=== PATIENT | female | born 1970 | race Caucasian/White ===

== ENCOUNTER 2016-09-21 07:28 | Emergency (ER) | payer MEDICAID ==
[~2016-09-21] VITALS: Ht 154.9 cm; Wt 96.6 kg
[2016-09-21 07:40] VITALS: BP 139/75
[2016-09-21] MEDS ORDERED: SYN.05 PO (07:45)
--- NOTE | 2016-09-21 07:46 | NUR ---
46/F BIB SELF C/O COUGH & SORE TROAT X 1 DAY. PATIENT DENIES N/V/D; SKIN IS PINK/WARM/DRY; AAOX4 WITH EVEN AND STEADY GAIT; LUNGS CLEAR BL; HR EVEN AND REGULAR; PT DENIES ANY FEVER, CP OR SOB AT THIS TIME; PATIENT STATES PAIN OF 9/10 AT THIS TIME; BP 159/97 AT THIS TIME. PATIENT POSITIONED FOR COMFORT; HOB ELEVATED; BEDRAILS UP X2; BED DOWN. ER MD MADE AWARE OF PT STATUS.
[2016-09-21 08:10] VITALS: BP 136/70
--- NOTE | 2016-09-21 08:10 | NUR ---
Patient discharged with BP 136/70; NO S/S OF HEADACHE OR DIZZINESS; DR DUMONT NOTIFIED , MD AWARE. Written and verbal after care instructions given and explained. Patient alert, oriented and verbalized understanding of instructions. Ambulatory with steady gait. All questions addressed prior to discharge. ID band removed. Patient advised to follow up with PMD. Rx of PREDNISONE & MOTRIN given. Patient educated on indication of medication including possible reaction and side effects. Opportunity to ask questions provided and answered.
== END 2016-09-21 08:10 | disposition home or self-care (01) ==
LOC: MED 07:28
DX: J02.9 Acute pharyngitis, unspecified (principal); E03.9 Hypothyroidism, unspecified
CPT/HCPCS: 99283

== ENCOUNTER 2018-10-30 10:01 | Emergency (ER) | payer MEDICAID ==
[~2018-10-30] VITALS: Ht 152.4 cm; Wt 99.3 kg
[~2018-10-30 10:01] MED LIST: SYN.05 PO
[2018-10-30 10:27] VITALS: BP 124/71
--- NOTE | 2018-10-30 12:17 | NUR ---
PT BIB SELF C/O NUMBNESS AND TINGLING OF LEFT ARM, ON AND OFF FOR 2 WEEKS. PT REPORTS TINGLING PAIN FROM LT HAND UP TO LT SHOULDER BLADE AT 02/03. LMP 10/04/2018. VSS. RAY MYRICK TO SEE PT. HX: HYPOTHYROIDISM, DIABETES
[2018-10-30 13:28] LABS: BASOPHILS # (AUTO) 0.1 K/uL (0.00-0.22); BASOPHILS % (AUTO) 0.9 % (0.0-2.0); EOSINOPHILS # (AUTO) 0.1 K/uL (0-0.4); EOSINOPHILS % (AUTO) 2.1 % (0.0-4.0); HEMATOCRIT 31.7 % (36-48); HEMOGLOBIN 9.7 g/dL (12.0-16.0); LYMPHOCYTES # (AUTO) 1.9 K/uL (2.5-16.5); LYMPHOCYTES % (AUTO) 30.1 % (20.5-51.1); MEAN CORPUSCULAR HEMOGLOBIN 20 pg (27-31); MEAN CORPUSCULAR HGB CONC 31 g/dL (33-37); MEAN CORPUSCULAR VOLUME 63.6 fL (80-94); MONOCYTES # (AUTO) 0.5 K/uL (0.8-1.0); MONOCYTES % (AUTO) 8.1 % (1.7-9.3); NEUTROPHILS # (AUTO) 3.7 K/uL (1.8-7.7); NEUTROPHILS % (AUTO) 58.8 % (42.2-75.2); PLATELET COUNT (AUTO) 278 K/uL (140-450); RED BLOOD CELL COUNT(AUTO) 4.99 MIL/uL (4.20-5.40); RED CELL DISTRIBUTION WIDTH 22.2 % (11.6-13.7); WHITE BLOOD COUNT (AUTO) 6.2 K/uL (4.8-10.8)
[2018-10-30 13:38] LABS: PROTHROMBIN TIME 9.9 secs (10.8-13.4)
[2018-10-30 13:42] LABS: ANION GAP 9.5 (8-16); CARBON DIOXIDE 27.3 mmol/L (21-32); CREATININE 0.5 mg/dL (0.6-1.3); POTASSIUM 3.8 mmol/L (3.5-5.1)
[2018-10-30 13:47] LABS: ALBUMIN 3.3 g/dL (3.4-5.0); TOTAL BILIRUBIN 0.4 mg/dL (0.0-1.0)
--- NOTE | 2018-10-30 14:19 | NUR ---
PT RESTING IN BED, STATES THAT TINGLING HAS LESSEND SINCE COMING IN AND REPORTS SHOULDER PAIN AT 6/10 AT THIS TIME. VSS.
[2018-10-30 16:35] VITALS: BP 135/75
== END 2018-10-30 16:35 | disposition home or self-care (01) ==
LOC: MED 10:01
DX: R20.2 Paresthesia of skin (principal); M54.2 Cervicalgia; M25.511 Pain in right shoulder; E11.9 Type 2 diabetes mellitus without complications; Z79.899 Other long term (current) drug therapy
CPT/HCPCS: 36415; 71046; 72040; 73030; 80053; 81002; 81025; 82948; 83880; 84484; 85025; 85610; 85730; 93005; 99284

== ENCOUNTER 2021-10-12 19:22 | Emergency (ER) | payer MEDICAID ==
[~2021-10-12] VITALS: Ht 152.4 cm; Wt 99.3 kg
[2021-10-12 19:46] VITALS: BP 150/90
--- NOTE | 2021-10-12 19:53 | NUR ---
pt to lobby
--- NOTE | 2021-10-12 22:20 | NUR ---
CALLED TO BE SEEN BY ERMD, NO RESPONSE PATIENT LEFT WITHOUT BEING SEEN BY DR. DUMONT. NO FURTHER CARE PROVIDED FOR PATIENT.
--- NOTE | 2021-10-12 22:25 | NUR ---
CALL FOR THE SECOND TIME, NO RESPONSE
--- NOTE | 2021-10-12 22:30 | NUR ---
CALLED FOR THE THIRD TIME, NO RESPONSE
== END 2021-10-12 22:20 | disposition left against medical advice (07) ==
LOC: MED 19:22
DX: H57.12 Ocular pain, left eye (principal); Z53.21 Procedure and treatment not carried out due to patient leaving prior to being seen by health care provider

== ENCOUNTER 2023-09-08 09:50 | Emergency (ER) | payer MEDICAID, OTHER ==
[~2023-09-08] VITALS: Ht 154.9 cm; Wt 84.6 kg
[2023-09-08 10:12] VITALS: BP 121/70; PULSE 77; RESP 14; TEMP 98.4; O2SAT 95
== END 2023-09-08 11:10 | disposition home or self-care (01) ==
LOC: MED 09:50
DX: H57.89 Other specified disorders of eye and adnexa (principal); H57.04 Mydriasis; T44.3X5A Adverse effect of other parasympatholytics [anticholinergics and antimuscarinics] and spasmolytics, initial encounter; H57.11 Ocular pain, right eye; E11.9 Type 2 diabetes mellitus without complications; E78.5 Hyperlipidemia, unspecified; Z79.899 Other long term (current) drug therapy; Y92.89 Other specified places as the place of occurrence of the external cause
CPT/HCPCS: 99282